=== PATIENT | male | born 1945 | race Caucasian/White ===

== ENCOUNTER 2018-09-27 13:29 | Emergency (ER) | payer MEDICARE, OTHER ==
--- NOTE | 2018-09-27 14:24 | EDM.PDOC ---
ED HPI GENERAL MEDICAL PROBLEM - General Chief Complaint: Bite:Animal, Insect Stated Complaint: TICK BITE Time Seen by Provider: 09/27/18 14:18 Source of Information: Reports: Patient History Limitations: Reports: No Limitations - History of Present Illness INITIAL COMMENTS - FREE TEXT/NARRATIVE: Pulled tick off his back 2 days ago; concern for Lyme's. Unsure of what kind of tick. Small jose a to the upper right shoulder area. No bullseye present. Location: Reports: Back Severity: Mild Improves with: Reports: None Worsens with: Reports: None - Related Data Allergies Allergy/AdvReac Type Severity Reaction Status Date / Time No Known Allergies Allergy Verified 09/27/18 14:12 Home Meds: Home Meds NK [No Known Home Meds] 09/27/18 [History] Past Medical History Dermatologic History: Reports: Benign Melanoma Social & Family History - Tobacco Use Smoking Status *Q: Never Smoker ED ROS GENERAL - Review of Systems Review Of Systems: ROS reveals no pertinent complaints other than HPI. ED EXAM, ANIMAL BITE - Physical Exam Exam: See Below Exam Limited By: No Limitations General Appearance: Alert, WD/WN, No Apparent Distress Head: Atraumatic, Normocephalic Neck: Normal Inspection, Supple Respiratory/Chest: No Respiratory Distress, Lungs Clear, Normal Breath Sounds Cardiovascular: Regular Rate, Rhythm Back Exam: Normal Inspection, Full Range of Motion, Other (small scab to the right shoulder area where tick was pulled off) Neurological: Alert, Oriented, CN II-XII Intact Psychiatric: Normal Affect, Normal Mood Skin Exam: Normal Color, Warm/Dry Course - Vital Signs Last Recorded V/S: Last Vital Signs Temp 98.7 F 09/27/18 14:16 Pulse 78 09/27/18 14:16 Resp 13 09/27/18 14:16 BP 145/74 H 09/27/18 14:16 Pulse Ox 96 09/27/18 14:16 Departure - Departure Time of Disposition: 14:23 Disposition: Home, Self-Care 01 Condition: Good Clinical Impression: Tick bite of back Qualifiers: Encounter type: initial encounter Qualified Code(s): S30.860A - Insect bite ( nonvenomous) of lower back and pelvis, initial encounter - Discharge Information *PRESCRIPTION DRUG MONITORING PROGRAM REVIEWED*: Not Applicable *COPY OF PRESCRIPTION DRUG MONITORING REPORT IN PATIENT [place]: Not Applicable Instructions: Animal Bite, Adult, [id number], Tick Bite Information, Adult, [id number] Referrals: PCP,None [Primary Care Provider] - Forms: ED Department Discharge - Problem List & Annotations (1) Tick bite of back SNOMED Code(s): 12324999 Code(s): S30.860A - INSECT BITE (NONVENOMOUS) OF LOWER BACK AND PELVIS, INIT ; W57.XXXA - BIT/STUNG BY NONVENOM INSECT & OTH NONVENOM ARTHROPODS, INIT Status: Acute Priority: Low Qualifiers: Encounter type: initial encounter Qualified Code(s): S30.860A - Insect bite (nonvenomous) of lower back and pelvis, initial encounter; W57.XXXA - Bitten or stung by nonvenomous insect and other nonvenomous arthropods, initial encounter - Problem List Review Problem List Initiated/Reviewed/Updated: Yes
== END 2018-09-27 14:51 | disposition home or self-care (01) ==
LOC: JP.ED 13:29
DX: S30.860A Insect bite (nonvenomous) of lower back and pelvis, initial encounter (principal); W57.XXXA Bitten or stung by nonvenomous insect and other nonvenomous arthropods, initial encounter
CPT/HCPCS: 99282